=== PATIENT | female | born 1960 | race African-American/Black ===

== ENCOUNTER 2017-04-11 01:56 | Emergency (ER) | payer OTHER ==
[~2017-04-11] VITALS: Ht 160 cm; Wt 70.0 kg
[~2017-04-11 01:56] MED LIST: BLAC20TA PO; CENTTAB9 PO; EFFE75CA PO; HAIRTAB PO
[2017-04-11 01:57] VITALS: BP 168/77; PULSE 73; RESP 18; TEMP 97.7; O2SAT 97
[2017-04-11] MEDS ORDERED: SODIUM CHLOR 0.9% 1000 ML INJ 1,000 ML IV SCH (02:43)
[2017-04-11] MEDS ORDERED: ONDANSETRON HCL 4 MG/2 ML VIAL IVP ONE (02:45)
[2017-04-11] MEDS ORDERED: SODIUM CHLORIDE 0.9% FLUSH 10 ML FLUSH IV FLUSH PRN (02:45)
[2017-04-11] MEDS ORDERED: MORPHINE SULFATE 4 MG/ML INJ IV PUSH ONE (02:45)
--- NOTE | 2017-04-11 02:47 | PD ---
HPI Chief Complaint: Abdominal Pain Time Seen by Provider: 02:35 Travel History International Travel<30 days: No Contact w/Intl Traveler<30days: No Traveled to known affect area: No History of Present Illness HPI Examined in the presence of a female nurse. 57-year-old female with a history of hysterectomy presents for evaluation of abdominal pain. Symptoms started 3 ago. She describes it as a sharp pain which is constant, diffusely throughout her abdomen but seems to be worst in the right lower quadrant. No obvious aggravating or alleviating factors. Denies fevers or chills, flank pain, dysuria, vaginal bleeding or discharge, diarrhea or constipation, chest pain or shortness of breath. Denies any dietary changes or sick contacts. No other complaints at this time. PFSH Past Medical History Arthritis: Yes (RA) Anxiety: Yes Depression: Yes Diminished Hearing: No Genitourinary: Yes (ovaries intact/partial hysterectomy) : 2 Para: 1 Miscarriage: 1 Tubal Ligation: Yes Past Surgical History Genitourinary Surgery: Yes (HYSTERECTOMY) Gynecologic Surgery: Yes (ECTOPIC ) Hysterectomy: Yes Other Surgery: Yes (tummy tuck) Social History Alcohol Use: Yes (ON THE WEEKENDS AND HER DAY OFF.) Tobacco Use: No Substance Use: No Allergies-Medications (Allergen,Severity, Reaction): Coded Allergies: doxycycline (Unverified Allergy, Severe, 04/11/17) minocycline (Unverified Allergy, Severe, 04/11/17) tigecycline (Unverified Allergy, Severe, 04/11/17) bismuth subsalicylate (Unverified Allergy, Intermediate, FACIAL AND FEET SWELLING, 04/11/17) mesalamine (Unverified Allergy, Intermediate, FACIAL AND FEET SWELLING, ) salsalate (Unverified Allergy, Mild, 04/11/17) amitriptyline (Unverified Allergy, Unknown, 04/11/17) etodolac (Unverified Allergy, Unknown, 04/11/17) Penicillins (Verified Adverse Reaction, Mild, Nausea/Vomiting, 04/11/17) Uncoded Allergies: TECLIZINE (Allergy, Mild, SWELLING, 09/08/06) Reported Meds & Prescriptions Reported Meds & Active Scripts Active Zofran (Ondansetron HCl) 4 Mg Tab 4 Mg PO Q6HR PRN Reported Hair/Skin/Nails (Multiple Vitamins W/ Minerals) Nails Tab 1 Tab PO DAILY Black Cohosh 20 Mg Tab 20 Mg PO DAILY Effexor Xr (Venlafaxine HCl) 75 Mg Cap 75 Mg PO DAILY Centrum (Multivitamins) Tab 1 Tab PO DAILY Review of Systems Except as stated in HPI: all other systems reviewed are Neg Physical Exam Narrative GENERAL: Well-developed well-nourished female in no acute distress SKIN: Warm and dry. HEAD: Atraumatic. Normocephalic. EYES: Pupils equal and round. No scleral icterus. No injection or drainage. ENT: No nasal bleeding or discharge. Mucous membranes pink and moist. NECK: Trachea midline. No JVD. CARDIOVASCULAR: Regular rate and rhythm. No murmur appreciated. RESPIRATORY: No accessory muscle use. Clear to auscultation. Breath sounds equal bilaterally. GASTROINTESTINAL: Abdomen soft, mild diffuse tenderness to palpation without guarding. No CVA tenderness. MUSCULOSKELETAL: No obvious deformities. No clubbing. No cyanosis. No edema. NEUROLOGICAL: Awake and alert. No obvious cranial nerve deficits. Motor grossly within normal limits. Normal speech. PSYCHIATRIC: Appropriate mood and affect; insight and judgment normal. Data Data Last Documented VS Vital Signs Date Time Temp Pulse Resp B/P (MAP) Pulse Ox O2 Delivery O2 Flow Rate FiO2 04/11/17 01:57 97.7 73 18 168/77 (107) 97 Room Air Orders Orders Complete Blood Count With Diff (04/11/17 02:43) Comprehensive Metabolic Panel (04/11/17 02:43) Lipase (04/11/17 02:43) Urinalysis - C+S If Indicated (04/11/17 02:43) Ct Abd/Pel W Iv Contrast(Rout) (04/11/17 02:43) Iv Access Insert/Monitor (04/11/17 02:43) Ecg Monitoring (04/11/17 02:43) Oximetry (04/11/17 02:43) Morphine Inj (Morphine Inj) (04/11/17 02:45) Ondansetron Inj (Zofran Inj) (04/11/17 02:45) Sodium Chlor 0.9% 1000 Ml Inj (Ns 1000 M (04/11/17 02:43) Sodium Chloride 0.9% Flush (Ns Flush) (04/11/17 02:45) Electrocardiogram (04/11/17 02:43) Iohexol 350 Inj (Omnipaque 350 Inj) (04/11/17 04:13) Ed Discharge Order (04/11/17 04:45) Potassium Chloride (Kcl) (04/11/17 05:00) Labs Laboratory Tests Test 04/11/17 03:02 White Blood Count 8.5 TH/MM3 Red Blood Count 4.40 MIL/MM3 Hemoglobin 12.0 GM/DL Hematocrit 36.5 % Mean Corpuscular Volume 82.9 FL Mean Corpuscular Hemoglobin 27.2 PG Mean Corpuscular Hemoglobin Concent 32.8 % Red Cell Distribution Width 13.3 % Platelet Count 269 TH/MM3 Mean Platelet Volume 8.2 FL Neutrophils (%) (Auto) 47.4 % Lymphocytes (%) (Auto) 44.2 % Monocytes (%) (Auto) 5.7 % Eosinophils (%) (Auto) 1.5 % Basophils (%) (Auto) 1.2 % Neutrophils # (Auto) 4.0 TH/MM3 Lymphocytes # (Auto) 3.8 TH/MM3 Monocytes # (Auto) 0.5 TH/MM3 Eosinophils # (Auto) 0.1 TH/MM3 Basophils # (Auto) 0.1 TH/MM3 CBC Comment DIFF FINAL Differential Comment Urine Color YELLOW Urine Turbidity CLEAR Urine pH 6.0 Urine Specific [place] 1.019 Urine Protein NEG mg/dL Urine Glucose (UA) NEG mg/dL Urine Ketones NEG mg/dL Urine Occult Blood TRACE Urine Nitrite NEG Urine Bilirubin NEG Urine Urobilinogen 2.0 MG/DL Urine Leukocyte Esterase TRACE Urine RBC 3 /hpf Urine WBC 1 /hpf Urine Squamous Epithelial Cells 1 /hpf Urine Bacteria RARE /hpf Urine Mucus FEW /lpf Microscopic Urinalysis Comment CULT NOT INDICATED Blood Urea Nitrogen 16 MG/DL Creatinine 1.02 MG/DL Random Glucose 115 MG/DL Total Protein 7.9 GM/DL Albumin 3.8 GM/DL Calcium Level 9.3 MG/DL Alkaline Phosphatase 100 U/L Aspartate Amino Transf (AST/SGOT) 11 U/L Alanine Aminotransferase (ALT/SGPT) 17 U/L Total Bilirubin 0.3 MG/DL Sodium Level 141 MEQ/L Potassium Level 3.4 MEQ/L Chloride Level 106 MEQ/L Carbon Dioxide Level 29.3 MEQ/L Anion Gap 6 MEQ/L Estimat Glomerular Filtration Rate 67 ML/MIN Lipase 316 U/L [facility] Medical Decision Making Medical Screen Exam Complete: Yes Emergency Medical Condition: Yes Medical Record Reviewed: Yes Differential Diagnosis Appendicitis, colitis, diverticulitis, gastritis, gastroenteritis, biliary colic , mesenteric ischemia, cystitis Narrative Course The patient was placed on ECG monitoring and pulse oximetry. Plan is for basic lab work, urinalysis, CT abdomen and pelvis. The patient will be given IV fluids, Zofran, morphine. The patient's laboratory imaging studies have been reviewed and found to be reassuring. Her CBC is unremarkable. Her CMP reveals a GFR of 67, potassium at 3.4, random glucose of 115. CT abdomen and pelvis reveals no acute abnormalities. Upon reexamination she feels improved. She will be discharged with a short course of Zofran. Diagnosis Primary Impression: Abdominal pain Additional Instructions: Slowly advance diet as tolerated. Zofran for nausea. Follow-up with primary care return for any emergent medical conditions. Med/Other Pt SpecificInfo: Prescription(s) given Scripts Ondansetron (Zofran) 4 Mg Tab 4 MG PO Q6HR Y for NAUSEA OR VOMITING, #15 TAB 0 Refills Prov: Blayne Weiss MD 04/11/17 Disposition: 01 DISCHARGE HOME Condition: Stable Colten Adams Apr 11, 2017 02:47
[2017-04-11 03:18] LABS: BASOPHIL # 0.1 TH/MM3 (0-0.2); BASOPHIL % 1.2 % (0.0-2.0); EOSINOPHIL # 0.1 TH/MM3 (0-0.4); EOSINOPHIL % 1.5 % (0.0-4.0); HEMATOCRIT 36.5 % (35.0-46.0); HEMO FLAGS DIFF FINAL; LYMPH % 44.2 % (9.0-44.0); LYMPHOCYTE # 3.8 TH/MM3 (1.0-4.8); MEAN CELL VOLUME 82.9 FL (80.0-100.0); MEAN CORPUSCULAR HEMOGLOBIN 27.2 PG (27.0-34.0); MEAN CORPUSCULAR HGB CONC 32.8 % (32.0-36.0); MONO % 5.7 % (0.0-8.0); NEUT % 47.4 % (16.0-70.0); PLATELET COUNT 269 TH/MM3 (150-450); RED CELL DISTRIBUTION WIDTH 13.3 % (11.6-17.2); WHITE BLOOD COUNT 8.5 TH/MM3 (4.0-11.0)
[2017-04-11 03:34] LABS: BACTERIA, URINE RARE /hpf; BLOOD, URINE TRACE (NEG); COMMENT (UR) CULT NOT INDICATED; CULTURE IF INDICATED CULT NOT INDICATED; GLUCOSE,URINE NEG (NEG); KETONE, URINE NEG (NEG); MUCUS URINE FEW /lpf (OCC); NITRITE,URINE NEG (NEG); SQUAMOUS EPITHELIAL CELL URINE 1 /hpf (0-5); URINE COLOR YELLOW (YELLW/STRAW)
[2017-04-11 03:50] LABS: ALT (GPT) 17 U/L (10-53); ANION GAP 6 MEQ/L (5-15); AST (GOT) 11 U/L (15-37); BICARBONATE 29.3 MEQ/L (21.0-32.0); BLOOD UREA NITROGEN 16 MG/DL (7-18); CHLORIDE 106 MEQ/L (98-107); GLOMERULAR FILTRATION RATE 67 ML/MIN (>89); POTASSIUM 3.4 MEQ/L (3.5-5.1); SODIUM (NA) 141 MEQ/L (136-145)
[2017-04-11 03:52] LABS: ALKALINE PHOSPHATASE 100 U/L (45-117); TOTAL BILIRUBIN ADULT 0.3 MG/DL (0.2-1.0)
[2017-04-11] MEDS ORDERED: IOHEXOL 350 MG/ML 10 ML VIAL (for RAD DIAG) IVCONTRAST ONE (04:13)
--- NOTE | 2017-04-11 04:35 | RADRPT ---
EXAM DATE/TIME: 04/11/2017 04:15 [place] COMPARISON: CT ABDOMEN & PELVIS W CONTRAST, August 11, 2015, 15:01. INDICATIONS : Right sided abdominal pain X 3 days. IV CONTRAST: 71 cc Omnipaque 350 (iohexol) IV ORAL CONTRAST: No oral contrast ingested. RADIATION DOSE: 7.79 CTDIvol (mGy) MEDICAL HISTORY : Rheumatoid arthritis. SURGICAL HISTORY : Hysterectomy. Tubal ligation. ENCOUNTER: Initial ACUITY: 3 days PAIN SCALE: 6/10 LOCATION: Right abdomen TECHNIQUE: Volumetric scanning of the abdomen and pelvis was performed. Using automated exposure control and ad justment of the mA and/or kV according to patient size, radiation dose was kept as low as reasonably achievable to obtain optimal diagnostic quality images. DICOM format image data is available electro nically for review and comparison. FINDINGS: LOWER LUNGS: The visualized lower lungs are clear. LIVER: Homogeneous density without lesion. There is no dilation of the biliary tree. No calcified gallston es. SPLEEN: Normal size without lesion. PANCREAS: Within normal limits. KIDNEYS: Normal in size and shape. There is no mass, stone or hydronephrosis. ADRENAL GLANDS: Within normal limits. VASCULAR: There is no aortic aneurysm. There is moderate atherosclerotic disease. BOWEL/MESENTERY: The stomach, small bowel, and colon demonstrate no acute abnormality. There is no free intraperitone al air or fluid. A small hiatal hernia is present. The appendix is normal. ABDOMINAL WALL: Within normal limits. RETROPERITONEUM: There is no lymphadenopathy. BLADDER: No wall thickening or mass. REPRODUCTIVE: Uterus is absent. INGUINAL: There is no lymphadenopathy or hernia. MUSCULOSKELETAL: There is severe right hip joint osteoarthritis. CONCLUSION: 1. No acute finding is identified within the abdomen or pelvis. 2. Nonacute findings include moderate atherosclerotic disease and small hiatal hernia. Vargas Masters MD on April 11, 2017 at 4:30 Board Certified Radiologist. This report was verified electronically.
[2017-04-11] MEDS ORDERED: ZOFR4TAB PO (04:41)
[2017-04-11] MEDS ORDERED: POTASSIUM CHLORIDE 20 MEQ CONTROLLED RELEASE TAB PO ONE (05:00)
== END 2017-04-11 05:01 | disposition home or self-care (01) ==
LOC: NEPE 01:56
DX: R10.9 Unspecified abdominal pain (principal); M06.9 Rheumatoid arthritis, unspecified; F41.9 Anxiety disorder, unspecified; F32.9 Major depressive disorder, single episode, unspecified; Z79.899 Other long term (current) drug therapy
CPT/HCPCS: 74177; 80053; 81001; 83690; 85025; 96374; 96375; 99285; J2270; J2405; J7030; Q9967